=== PATIENT | female | born 1970 | race Two or more races ===

== ENCOUNTER → 2025-02-05 | Outpatient (CLI) | payer OTHER, SELFPAY ==
--- NOTE | 2025-02-05 13:30 | XR_ITS ---
Examination: Breast ultrasound complete, bilateral Date and time of exam: February 05, 2025 1342 hours Comparison January 29, 2024 INDICATIONS: Bilateral nipple discomfort 2 months Technique: Real-time grayscale ultrasonographic imaging bilateral breasts, including all 4 quadrants as well as nipple retroareolar and axillary regions. Findings: Sonographic images right and left breast demonstrated no cystic or solid masses IMPRESSION: BI-RADS Category 1: Negative study
--- NOTE | 2025-02-05 13:36 | XR_ITS ---
Examination: Screening digital mammography, bilateral Computer aided detection 3-D breast Tomosynthesis, bilateral Date and time of exam: February 05, 2025 1355 hours Compared to mammograms dating to October 09, 2018 Indication: Screening Technique: Nonmagnified MLO, CC views of the breasts to been obtained, reconstructed from 3-D Tomosynthesis images. R2 computer aided detection program utilized for evaluation of suspicious masses and/or abnormal calcifications. 3-D Tomosynthesis images obtained. Findings: Scattered areas of fibroglandular density. Benign calcifications. No interval suspicious masses. Implants are intact Impression: BI-RADS category II: Benign Findings. Recommend 1 year follow-up mammogram.
== END | disposition home or self-care (01) ==
LOC: CDIM 13:27
PROVIDERS: Referring Provider Specialist; Visit Provider Specialist
DX: Z12.31 Encounter for screening mammogram for malignant neoplasm of breast (principal); R92.323 Mammographic fibroglandular density, bilateral breasts; R92.1 Mammographic calcification found on diagnostic imaging of breast
CPT/HCPCS: 76641; 77063; 77067